=== PATIENT | female | born 1965 | race Two or more races ===

== ENCOUNTER 2024-05-19 08:23 | Outpatient (CLI) | payer OTHER | END 2024-05-19 08:39 | disposition home or self-care (01) | LOC: SONOGRAMA 08:23 | PROVIDERS: ATTEND Obstetrics & Gynecology Gynecology | DX: N84.0 Polyp of corpus uteri (principal) ==

== ENCOUNTER 2025-03-04 00:54 | Inpatient (IN) | payer OTHER ==
[~2025-03-04] VITALS: Ht 170.2 cm; Wt 71.2 kg
--- NOTE | 2025-03-04 01:26 | NUR ---
PACIENTE ALERTA Y ORIENTADA X3. REFIERE COMENZAR CON DOLOR EN RLQ Y NAUSEAS DESDE EL MIRANDA DE ISABELLA. SE JOSÉ MANUEL S/V Y SE UBICA.
[2025-03-04] MEDS ORDERED: 0.9 % SODIUM CHLORIDE 1,000 ML IV STA (02:04)
[2025-03-04] MEDS ORDERED: KETOROLAC TROMETHAMINE 30 MG VIAL IV STA (02:05)
[2025-03-04] MEDS ORDERED: TRAMADOL HCL 50 MG TABLET PO STA (02:05)
[2025-03-04] MEDS ORDERED: KETOROLAC TROMETHAMINE 30 MG VIAL ONE (02:11)
--- NOTE | 2025-03-04 02:18 | NUR ---
SE EDUCA PACIENTE SOBRE EL TX MEDICO Y ESTA REFIERE ENTENDER. SE CANALIZA Y SE ADMINITRA MEDICAMENTOS ALTHEA ORDEN MEDICA. SE JOSÉ MANUEL MUESTRAS DE LABORATORIOS Y SE ENVIAN. SE ENTREGA ENVASE DE U/A
[2025-03-04 02:58] LABS: BASO % 0.2 % (0.1-1.2); HEMATOCRIT 41.3 % (34.1-44.9); HEMOGLOBIN 14.8 g/dL (11.2-15.7); LYMPH # 1.39 (1.18-3.74); LYMPH % 8.4 % (19.3-53.1); MEAN CORPUSCULAR HEMOGLOBIN 31.4 pg (25.6-32.2); MONO # 1.14 (0.24-0.82); MONO % 6.9 % (4.7-12.5); NEUT # 13.97 (1.56-6.13); NEUT % 84.1 % (34.0-71.1); PLATELET COUNT 314 K/uL (163-369); RED BLOOD COUNT 4.72 M/uL (3.93-5.22); RED CELL DISTRIBUTION WIDTH 12.5 % (11.6-14.4)
[2025-03-04 03:07] LABS: INR 1.1; PARTIAL THROMBOPLASTIN TIME 27.7 SECONDS (22.0-34.0); PROTHROMBIN TIME 11.9 SECONDS (9.0-11.5)
[2025-03-04 03:09] LABS: PH,URINE 6.5 (5.0-8.0); URINE APPEARANCE Clear; URINE BILIRRUBIN Negative (NEGATIVE); URINE BLOOD Negative; URINE COLOR Yellow; URINE GLUCOSE Negative (NEGATIVE); URINE KETONE 15 (NEGATIVE); URINE LEUKOCYTE Negative; URINE NITRATE Negative; URINE PROTEIN Negative (NEGATIVE); URINE UROBILINOGEN 0.2 E.U./dl
[2025-03-04 03:12] LABS: URINE BACTERIA 13.4 uL (0.0-1933); URINE RBC 3.3 uL (0.0-20.8); URINE WBC 6.9 uL (0.0-23.2)
[2025-03-04 03:12] LABS: ALBUMIN 3.8 gm/dL (3.4-5.0); BILIRUBIN TOTAL 0.87 mg/dL (0.3-1.2); CALCIUM 8.9 mg/dL (8.5-10.1); CREATININE SERUM 0.82 mg/dL (0.55-1.02); GFR 71.11; GLOBULINA 4.3 G/DL (2.4-3.5); POTASSIUM 3.65 mEq/L (3.5-5.1); TOTAL PROTEIN 8.1 gm/dL (6.4-8.2)
[2025-03-04] MEDS ORDERED: PIPERACILLIN/TAZOBACTAM SODIUM 3.375 GM VIAL IV STA (03:16)
[2025-03-04 03:32] LABS: URINE EPITHELIAL CELLS 0.9 uL (0.0-38.8)
--- NOTE | 2025-03-04 03:41 | NUR ---
SE ADMINITRA MEDICAMENTOS ALTHEA ORDEN MEDICA. SE ORIENTA PACIENTE A ESTAR NPO Y ESTA REFIERE ENTENDER. SE REALIZA EKG
--- NOTE | 2025-03-04 07:35 | NUR ---
SE RECIBE PACIENTE FEMINA ALERTA Y ORIENTADA X3, EN RADHA BARANDAS ELEVADAS Y EN JUARES NIVEL MAS BAJO POR PRECAUCION A CAIDAS. PACIENTE PREVIAMENTE CANALIZADA RECIBIENDO IV FLUIDS ALTHEA ORDEN. PACIENTE EN ESPERA DE EVALUACION MEDICA DE CIRUJANO. SE MONITOREAN S/V Y SE MANTIENE BAJO OBSERVACION POR CAMBIOSE EN JUARES CONDICION.
[2025-03-04] MEDS ORDERED: MORPHINE SULFATE 4 MG/ML VIAL IV STA (07:50)
[2025-03-04] MEDS ORDERED: PIPERACILLIN/TAZOBACTAM SODIUM 3.375 GM in 0.9 % SODIUM CHLORIDE 100 ML IV SCH (12:00)
[2025-03-04 14:09] LABS: COVID-19 AG NEGATIVE (NEGATIVE)
[2025-03-04] MEDS ORDERED: MORPHINE SULFATE 4 MG/ML VIAL IV ONE (20:45)
[2025-03-04] MEDS ORDERED: ONDANSETRON HCL 2 MG/ML VIAL IV PRN (21:15)
[2025-03-04] MEDS ORDERED: KETOROLAC TROMETHAMINE 30 MG VIAL IV PRN (21:15)
[2025-03-04 22:01] VITALS: BP 115/68; O2SAT 95
[2025-03-05 02:02] VITALS: BP 99/63; O2SAT 96
[2025-03-05] MEDS ORDERED: MORPHINE SULFATE 4 MG/ML CARTRIDGE IV ONE (03:00)
[2025-03-05] MEDS ORDERED: FAMOTIDINE/PF 20 MG/2 ML VIAL IV SCH (05:00)
[2025-03-05 08:00] VITALS: BP 118/74; O2SAT 97
[2025-03-05] MEDS ORDERED: SUCRALFATE 1 G TABLET PO SCH (09:00)
[2025-03-05] MEDS ORDERED: LACTOBACILLUS ACIDOPHILUS 1 CAP CAP PO SCH (09:00)
[2025-03-05 17:13] VITALS: BP 106/67; O2SAT 97
[2025-03-06 01:50] VITALS: BP 95/60; O2SAT 100
[2025-03-06 08:00] VITALS: BP 118/74; O2SAT 96
== END 2025-03-06 14:01 | disposition home or self-care (01) | DRG 399 ==
LOC: ER 00:54 → SURH 11:33 → SEC-K 11:33 → SURH 13:27
PROVIDERS: Emergency Medicine; ADMIT Surgery; ATTEND Surgery
PROC: BW21ZZZ Computerized Tomography (CT Scan) of Abdomen and Pelvis (ICD-10-PCS; 2025-03-04)
PROC: 0DTJ4ZZ Resection of Appendix, Percutaneous Endoscopic Approach (ICD-10-PCS; principal; 2025-03-04 17:00)
DX: K35.30 Acute appendicitis with localized peritonitis, without perforation or gangrene (principal)

== ENCOUNTER 2025-09-27 10:06 | Outpatient (CLI) | payer OTHER | END 2025-09-27 10:21 | disposition home or self-care (01) | LOC: MAMO-SONO 10:06 | DX: N64.4 Mastodynia (principal); Z12.31 Encounter for screening mammogram for malignant neoplasm of breast ==